=== PATIENT | male | born 1960 | race Caucasian/White ===

== ENCOUNTER 2022-06-20 13:47 | Emergency (ER) | payer BC ==
[~2022-06-20] VITALS: Ht 190.5 cm; Wt 104.3 kg
[~2022-06-20 13:47] MED LIST: METO25TA3 PO
[2022-06-20] MEDS ORDERED: AMPICILLIN SODIUM/SULBACTAM NA 3 GM VIAL IM ONE (14:30)
[2022-06-20] MEDS ORDERED: IBUPROFEN 800 MG TABLET PO ONE (14:30)
[2022-06-20] MEDS ORDERED: BACITRACIN 1 GM OINT TP ONE (15:00)
[2022-06-20] MEDS ORDERED: AUG875 PO (15:01)
[2022-06-20] MEDS ORDERED: IBUP-1971 PO (15:01)
== END 2022-06-20 15:47 | disposition home or self-care (01) ==
LOC: SED 13:47
DX: S61.230A Puncture wound without foreign body of right index finger without damage to nail, initial encounter (principal); Z79.899 Other long term (current) drug therapy; W54.0XXA Bitten by dog, initial encounter; Y93.89 Activity, other specified; Y92.89 Other specified places as the place of occurrence of the external cause; Y99.8 Other external cause status
CPT/HCPCS: 99283; 96372; J0295

== ENCOUNTER 2022-12-02 10:44 | Emergency (ER) | payer OTHER, BC ==
[~2022-12-02] VITALS: Ht 190.5 cm; Wt 103.4 kg
[~2022-12-02 10:44] MED LIST changes: +AUG875 PO; +IBUP-1971 PO
[2022-12-02 11:14] VITALS: RESP 20; TEMP 98; O2SAT 97
[2022-12-02] MEDS ORDERED: NABU-140 PO (12:23)
[2022-12-02 12:37] VITALS: TEMP 98; O2SAT 97
[2022-12-02 13:01] VITALS: BP_SYST 150; PULSE 68; RESP 15
[2022-12-02] MEDS ORDERED: cefTRIAXone 1 GM in D5W 50 ML IV ONE (13:15)
== END 2022-12-02 13:00 | disposition home or self-care (01) ==
LOC: SED 10:44
DX: S82.454A Nondisplaced comminuted fracture of shaft of right fibula, initial encounter for closed fracture (principal); Z79.899 Other long term (current) drug therapy; V28.01XA Electric (assisted) bicycle driver injured in noncollision transport accident in nontraffic accident, initial encounter; Y93.55 Activity, bike riding; Y92.89 Other specified places as the place of occurrence of the external cause; Y99.8 Other external cause status
CPT/HCPCS: 99283